=== PATIENT | male | born 1950 | race Caucasian/White ===

== ENCOUNTER 2017-06-14 09:06 | Emergency (ER) | payer OTHER ==
[2017-06-14 09:15] VITALS: TEMP 98.7; BMI 24.4
--- NOTE | 2017-06-14 11:37 | PDOC ---
History of Present Illness - General Chief Complaint: Urinary Problem Stated Complaint: URINARY RETENTION Time Seen by Provider: 06/14/17 11:23 History Source: Patient Exam Limitations: No Limitations - History of Present Illness Initial Comments: CHIEF COMPLAINT: 66 y/o afebrile male with PMH HLD, enlarged prostate c/o urinary retention since yesterday. HISTORY OF PRESENT ILLNESS: Patient states he used to be on medication for his urinary retention but stopped on his own about 1 year ago because he felt it wasn't doing anything. He states yesterday morning he had a normal BM. After that he started having urinary retention and feels like he has to go to the bathroom all the time but only a few drops come out. He also admits he hasn't had a bowel movement since yesterday morning. he denies f/c, n/v/d, CP, SOB, back pain. Vital signs on arrival are within normal limits. REVIEW OF SYSTEMS: GENERAL/CONSTITUTIONAL: No fever/chills. No weakness. No weight change. HEAD, EYES, EARS, NOSE AND THROAT: No change in vision. No ear pain or discharge. No sore throat. CARDIOVASCULAR: No chest pain or shortness of breath. RESPIRATORY: No cough, wheezing, or hemoptysis. GASTROINTESTINAL: No abd pain, nausea, vomiting, diarrhea. GENITOURINARY: +urinary retention. MUSCULOSKELETAL: No joint or muscle swelling or pain. No neck or back pain. SKIN: No rash or easy bruising. NEUROLOGIC: No headache, vertigo, loss of consciousness, or loss of sensation. PHYSICAL EXAM: GENERAL: The patient is awake, alert, and fully oriented, in no acute distress. He is well appearing and ambulatory. HEAD: Normal with no signs of trauma. ABDOMEN: Soft, non-distended, minimal TTP of suprapubic region. Normal BS x 4 BACK: No CTA with fist percussion b/l. EXTREMITIES: Normal range of motion, no edema. NEUROLOGICAL: Normal speech, normal gait. CN II-XII grossly intact. SKIN: Warm, dry, normal turgor, no rashes or lesions noted. Past History - Past Medical History Allergies/Adverse Reactions: Allergies Allergy/AdvReac Type Severity Reaction Status Date / Time No Known Allergies Allergy Verified 06/14/17 09:12 Home Medications: Ambulatory Orders Docusate Sodium [Colace -] 100 mg PO BID #20 capsule 06/14/17 COPD: No Hypercholesterolemia: Yes Other medical history: bph,arithritis - Immunization History Immunization Up to Date: Yes - Suicide/Smoking/Psychosocial Hx Smoking History: Never smoked Have you smoked in the past 12 months: No Information on smoking cessation initiated: No Hx Alcohol Use: No Substance Use Type: None *Physical Exam - Vital Signs Last Vital Signs Temp Pulse Resp BP Pulse Ox 98.7 F 95 H 18 125/78 100 06/14/17 09:13 06/14/17 09:13 06/14/17 09:13 06/14/17 09:13 06/14/17 09:13 Medical Decision Making - Medical Decision Making A/P: 66 y/o male with known prostate enlargement not on meds c/o urinary retention since yesterday. Plan is as follows: 1. UA/culture 2. Insert catheter UA negative Patient states he feels much better now with the catheter in place. Approximately 400cc in the bag. Will d/c to home with ahuja in place and instructions to f/u with his urologist within as soon as possible. Will send with rx for colace for his constipation. Instructed him to return to the ER with any worsening or concerning symptoms. The patient verbalizes understanding of all instructions, has no further questions and is awaiting discharge. *DC/Admit/Observation/Transfer Diagnosis at time of Disposition: Urinary retention, Constipation - Discharge Dispostion Disposition: HOME Condition at time of disposition: Improved - Referrals Referrals: Arnold Castaneda MD [Staff Physician] - Call tomorrow - Patient Instructions Printed Discharge Instructions: DI for Urinary Retention in Men, DI for Constipation Additional Instructions: Discharge Instructions: -A prescription was sent to your pharmacy to help with constipation. -Please call Dr. Castaneda tomorrow to schedule follow up appointment -Return to the ER with any worsening or concerning symptoms - Post Discharge Activity
[2017-06-14 12:54] LABS: URINE APPEARANCE CLEAR; URINE BILIRUBIN NEGATIVE (NEGATIVE); URINE BLOOD 1+ (NEGATIVE); URINE COLOR YELLOW; URINE GLUCOSE (UA) NEGATIVE (NEGATIVE); URINE KETONE TRACE (NEGATIVE); URINE LEUK ESTERASE NEGATIVE (NEGATIVE); URINE NITRITE NEGATIVE (NEGATIVE); URINE PROTEIN NEGATIVE (NEGATIVE); URINE UROBILINOGEN NEGATIVE mg/dL (0.2-1.0)
[2017-06-14 14:16] VITALS: BP 134/78; PULSE 68
== END 2017-06-14 14:39 | disposition home or self-care (01) ==
LOC: JER 09:06
PROC: 0T9B70Z Drainage of Bladder with Drainage Device, Via Natural or Artificial Opening (ICD-10-PCS; principal; 2017-06-14)
DX: N40.1 Benign prostatic hyperplasia with lower urinary tract symptoms (principal); R33.8 Other retention of urine
CPT/HCPCS: 81003; 81015; 87086; 99283-25

== ENCOUNTER 2017-07-18 17:56 | Emergency (ER) | payer OTHER ==
[2017-07-18 18:01] VITALS: BP 142/94; PULSE 92; TEMP 98; BMI 23.3
--- NOTE | 2017-07-18 18:43 | PDOC ---
History of Present Illness - General Chief Complaint: Urinary Problem Stated Complaint: TROUBLE URINATING Time Seen by Provider: 07/18/17 18:37 History Source: Patient, Family Exam Limitations: No Limitations - History of Present Illness Initial Comments: 66 yo M history BPH presents with urinary retention. He states that he recently had a Ahuja catheter placed, it was removed around midnight last night, passed small amount of urine after about 45 minutes, then has not been able to urinate since then. C/o suprapubic pain. Denies fever, N/V/D. Pain is sharp, nonradiating. Past History - Past Medical History Allergies/Adverse Reactions: Allergies Allergy/AdvReac Type Severity Reaction Status Date / Time No Known Allergies Allergy Verified 07/18/17 18:00 Home Medications: Ambulatory Orders Tamsulosin HCl [Flomax] 0.4 mg PO DAILY 07/18/17 COPD: No Hypercholesterolemia: Yes Other medical history: enlarged prostate, arthritis - Immunization History Immunization Up to Date: Yes - Suicide/Smoking/Psychosocial Hx Smoking History: Never smoked Have you smoked in the past 12 months: No Information on smoking cessation initiated: No Hx Alcohol Use: No Drug/Substance Use Hx: No Substance Use Type: None Review of Systems - Review of Systems Able to Perform ROS?: Yes Comments:: GENERAL/CONSTITUTIONAL: No fever or chills. No weakness. HEAD, EYES, EARS, NOSE AND THROAT: No change in vision. No ear pain or discharge. No sore throat. CARDIOVASCULAR: No chest pain or shortness of breath. RESPIRATORY: No cough, wheezing, or hemoptysis. GASTROINTESTINAL: No nausea, vomiting, diarrhea or constipation. GENITOURINARY: No dysuria, frequency. +Decreased urination. MUSCULOSKELETAL: No joint or muscle swelling or pain. No neck or back pain. SKIN: No rash NEUROLOGIC: No headache, vertigo, loss of consciousness, or change in strength/ sensation. ENDOCRINE: No increased thirst. No abnormal weight change. HEMATOLOGIC/LYMPHATIC: No anemia, easy bleeding, or history of blood clots. ALLERGIC/IMMUNOLOGIC: No hives or skin allergy. *Physical Exam - Vital Signs Last Vital Signs Temp Pulse Resp BP Pulse Ox 98 F 92 H 18 142/94 98 07/18/17 17:59 07/18/17 17:59 07/18/17 17:59 07/18/17 17:59 07/18/17 17:59 - Physical Exam Comments: GENERAL: Awake, alert, and fully oriented, in no acute distress (Examined as ahuja catheter was being placed by RN) HEAD: No signs of trauma EYES: PERRLA, EOMI, sclera anicteric, conjunctiva clear ENT: Auricles normal inspection, hearing grossly normal, nares patent, oropharynx clear without exudates. Moist mucosa NECK: Normal ROM, supple, no lymphadenopathy, JVD, or masses LUNGS: Breath sounds equal, clear to auscultation bilaterally. No wheezes, and no crackles HEART: Regular rate and rhythm, normal S1 and S2, no murmurs, rubs or gallops ABDOMEN: Soft, nontender, normoactive bowel sounds. No guarding, no rebound. + Mild bladder distension. No CVAT. EXTREMITIES: Normal range of motion, no edema. No clubbing or cyanosis. No cords, erythema, or tenderness NEUROLOGICAL: Cranial nerves II through XII grossly intact. Normal speech, normal gait SKIN: Warm, Dry, normal turgor, no rashes or lesions noted. : Ahuja draining dark yellow urine. Medical Decision Making - Medical Decision Making 07/18/17 18:43 Initial drainage from ahuja catheter 300mL. Will observe briefly in ED before DC home. 07/18/17 19:[address] Simon at 7pm shift change. Awaiting UA, then DC home. *DC/Admit/Observation/Transfer Diagnosis at time of Disposition: Urinary retention - Discharge Dispostion Condition at time of disposition: Improved Admit: No - Referrals - Patient Instructions Printed Discharge Instructions: How to Care for Your Ahuja Catheter -- Male, DI for Urinary Retention in Men Print Language: BELARUSIAN - Post Discharge Activity
[2017-07-18 18:58] LABS: URINE APPEARANCE CLOUDY; URINE BILIRUBIN NEGATIVE (NEGATIVE); URINE BLOOD 3+ (NEGATIVE); URINE COLOR YELLOW; URINE GLUCOSE (UA) NEGATIVE (NEGATIVE); URINE KETONE NEGATIVE (NEGATIVE); URINE LEUK ESTERASE NEGATIVE (NEGATIVE); URINE NITRITE NEGATIVE (NEGATIVE); URINE UROBILINOGEN NEGATIVE mg/dL (0.2-1.0)
[2017-07-18 19:14] LABS: URINE PROTEIN 1+ (NEGATIVE)
[2017-07-18 19:19] LABS: URINE MUCUS RARE
== END 2017-07-18 19:32 | disposition home or self-care (01) ==
LOC: JER 17:56
DX: R33.9 Retention of urine, unspecified (principal); E78.00 Pure hypercholesterolemia, unspecified
CPT/HCPCS: 81003; 81015; 87086; 99282-25

== ENCOUNTER 2017-09-30 09:56 | Emergency (ER) | payer OTHER ==
[2017-09-30 10:03] VITALS: BMI 25.3
--- NOTE | 2017-09-30 10:54 | PDOC ---
History of Present Illness - General History Source: Patient Exam Limitations: No Limitations - History of Present Illness Initial Comments: 09/30/17 11:13 The patient is a 67 year old female with a significant PMH of BPH (ahuja in place, on Flomax) and hyperlipidemia who presents to the emergency department with urinary leakage beginning approximately this morning. The patient reports he has a ahuja with bag in place and woke up this morning soaked with urine. He reports unsuccessfully attempting to remove his ahuja himself in order to urinate on his own, and noted some blood in the catheter afterwards. He states his ahuja has been in place for approximately 3 months. The patient denies fevers and chills. The patient denies chest pain, shortness of breath, headache and dizziness. Denies nausea, vomit, diarrhea and constipation. Denies dysuria, frequency, and urgency. Allergies: NKA Past surgical history: None reported. Social history: No reported cigarette, alcohol, or drug use. PCP: None reported. <Osmin Joshi - Last Filed: 09/30/17 11:13> - General History Source: Patient Exam Limitations: No Limitations <Stephanie Rodriguez - Last Filed: 09/30/17 12:56> - General Chief Complaint: Urinary Catheter Problem Stated Complaint: URINARY PROBLEM Past History <Osmin Joshi - Last Filed: 09/30/17 11:13> - Past Medical History COPD: No Disorders: Yes (BPH) Hypercholesterolemia: Yes - Immunization History Immunization Up to Date: Yes - Suicide/Smoking/Psychosocial Hx Smoking History: Never smoked Have you smoked in the past 12 months: No Hx Alcohol Use: No Drug/Substance Use Hx: No Substance Use Type: None <Stephanie Rodriguez - Last Filed: 09/30/17 12:56> - Past Medical History Allergies/Adverse Reactions: Allergies Allergy/AdvReac Type Severity Reaction Status Date / Time No Known Allergies Allergy Verified 09/30/17 10:03 Home Medications: Ambulatory Orders Tamsulosin HCl [Flomax] 0.4 mg PO DAILY 07/18/17 Sulfamethoxazole/Trimethoprim [Bactrim Ds -] 1 tab PO BID #14 tablet 09/30/17 Review of Systems - Review of Systems Constitutional: No: Chills, Diaphoresis HEENTM: No: Eye Pain Cardiac (ROS): No: Chest Pain ABD/GI: No: Abdominal Distended : Yes: Other (leaking ahuja cathetar). No: Burning, Dysuria <Stephanie Rodriguez - Last Filed: 09/30/17 12:56> *Physical Exam - Vital Signs Last Vital Signs Temp Pulse Resp BP Pulse Ox 98.1 F 60 18 135/58 99 09/30/17 09:59 09/30/17 09:59 09/30/17 09:59 09/30/17 09:59 09/30/17 09:59 <Osmin Joshi - Last Filed: 09/30/17 11:13> - Vital Signs Last Vital Signs Temp Pulse Resp BP Pulse Ox 98.1 F 60 18 135/58 99 09/30/17 09:59 09/30/17 09:59 09/30/17 09:59 09/30/17 09:59 09/30/17 09:59 - Physical Exam General Appearance: Yes: Appropriately Dressed Respiratory/Chest: positive: Lungs Clear, Normal Breath Sounds Cardiovascular: positive: Regular Rhythm, Regular Rate, S1, S2 Gastrointestinal/Abdominal: positive: Normal Bowel Sounds, Flat, Soft. negative : Tender Male Genitalia: positive: other (ahuja leg bag , blood and cloudy urine in bag.) Extremity: positive: Normal Capillary Refill Integumentary: positive: Normal Color, Dry, Warm Neurologic: positive: Fully Oriented, Alert, Normal Mood/Affect <Stephanie Rodriguez - Last Filed: 09/30/17 12:56> Medical Decision Making - Medical Decision Making 09/30/17 10:53 67 yo male h/o BPH indwelling cathetar for few months, followed by urologist in [place]. no f/c no flank pain. no other complaints. differential dysfunctional cathetar. infection. plan change ahuja, ua urine culture, reassess. <Stephanie Rodriguez - Last Filed: 09/30/17 12:56> *DC/Admit/Observation/Transfer - Attestations Scribe Attestion: 09/30/17 11:13 Documentation prepared by Osmin Joshi, acting as medical office receptionist assistant for Stephanie Rodriguez MD. <Osmin Joshi - Last Filed: 09/30/17 11:13> - Discharge Dispostion Decision to Admit order: No <Stephanie Rodriguez - Last Filed: 09/30/17 12:56> Diagnosis at time of Disposition: UTI (urinary tract infection), Ahuja catheter problem - Discharge Dispostion Disposition: HOME Condition at time of disposition: Improved - Prescriptions Prescriptions: Sulfamethoxazole/Trimethoprim [Bactrim Ds -] 1 tab PO BID #14 tablet - Patient Instructions Printed Discharge Instructions: How to Care for Your Ahuja Catheter -- Male, Urinary Tract Infection Additional Instructions: you should take bactrim twice daily x 7 days. follow up with your urologist this week. return for fever, failure to drain cathetar or any problems. Print Language: LATVIAN
[2017-09-30 12:12] LABS: URINE APPEARANCE CLOUDY; URINE BILIRUBIN NEGATIVE (<2.0 mg/dL); URINE COLOR RED; URINE GLUCOSE (UA) NEGATIVE (NEGATIVE); URINE KETONE NEGATIVE (NEGATIVE); URINE NITRITE POSITIVE (NEGATIVE); URINE UROBILINOGEN NEGATIVE mg/dL (0.2-1.0)
[2017-09-30 12:14] LABS: URINE LEUK ESTERASE 2+ (NEGATIVE); URINE PROTEIN 2+ (NEGATIVE)
[2017-09-30] MEDS ORDERED: SULFAMETHOXAZOLE/TRIMETHOPRIM 800MG/160MG D.S. TABLET PO ONE (12:40)
[2017-09-30] MEDS ORDERED: SULFAMETHOXAZOLE/TRIMETHOPRIM 800MG/160MG D.S. TABLET ONE (12:50)
[2017-09-30 13:05] VITALS: BP 135/74; PULSE 77; TEMP 98.2
== END 2017-09-30 13:05 | disposition home or self-care (01) ==
LOC: JER 09:56
DX: T83.038A Leakage of other urinary catheter, initial encounter (principal); N39.0 Urinary tract infection, site not specified; N40.0 Benign prostatic hyperplasia without lower urinary tract symptoms
CPT/HCPCS: 81003; 81015; 87086; 99283-25

== ENCOUNTER 2021-03-20 23:38 | Emergency (ER) | payer OTHER ==
[2021-03-20 23:47] VITALS: BP 141/89; PULSE 69; TEMP 98; BMI 24.2
[2021-03-21] MEDS ORDERED: MAGNESIUM CITRATE 300 ML BOTTLE PO ONE (00:48)
[2021-03-21] MEDS ORDERED: MAGNESIUM CITRATE 300 ML BOTTLE ONE (01:02)
== END 2021-03-21 01:45 | disposition home or self-care (01) ==
LOC: JER 23:38
DX: K59.00 Constipation, unspecified (principal); R33.9 Retention of urine, unspecified
CPT/HCPCS: 99283-25

== ENCOUNTER 2021-03-27 07:38 | Emergency (ER) | payer OTHER ==
[2021-03-27 07:43] VITALS: TEMP 97; BMI 24.2
[2021-03-27] MEDS ORDERED: MAGNESIUM CITRATE 300 ML BOTTLE PO ONE (09:52)
[2021-03-27] MEDS ORDERED: MAGNESIUM CITRATE 300 ML BOTTLE ONE (10:06)
[2021-03-27 10:18] LABS: EPI CELLS 1 /uL (0-25.1); HYALINE CASTS 1 /uL (0-3.1); PH,URINE 5.5 (5.0-8.0); URINE APPEARANCE CLEAR; URINE BACTERIA 0 /uL (0-1359); URINE BILIRUBIN NEGATIVE (NEGATIVE); URINE COLOR YELLOW; URINE GLUCOSE (UA) NEGATIVE (NEGATIVE); URINE KETONE NEGATIVE (NEGATIVE); URINE LEUK ESTERASE NEGATIVE (NEGATIVE); URINE NITRITE NEGATIVE (NEGATIVE); URINE PROTEIN NEGATIVE (NEGATIVE); URINE RBC 588 /uL (0-23.9); URINE UROBILINOGEN 0.2 mg/dL (0.2-1.0); URINE WBC 17 /uL (0-25.8)
[2021-03-27 12:04] VITALS: BP 131/78; PULSE 65
== END 2021-03-27 12:04 | disposition home or self-care (01) ==
LOC: JER 07:38
DX: R33.9 Retention of urine, unspecified (principal); K59.00 Constipation, unspecified; Z96.0 Presence of urogenital implants
CPT/HCPCS: 81003; 87086; 99283-25

== ENCOUNTER 2023-01-17 16:49 | Emergency (ER) | payer OTHER ==
[2023-01-17 16:59] VITALS: BP 123/86; PULSE 86; RESP 18; TEMP 98.6; BMI 26.4
[2023-01-17 20:04] LABS: EPI CELLS 0 /uL (0-25.1); HYALINE CASTS 12 /uL (0-3.1); PH,URINE 6.5 (5.0-8.0); URINE APPEARANCE CLEAR; URINE BACTERIA >9,000 /uL (0-1359); URINE BILIRUBIN NEGATIVE (NEGATIVE); URINE COLOR YELLOW; URINE GLUCOSE (UA) NEGATIVE (NEGATIVE); URINE KETONE TRACE (NEGATIVE); URINE LEUK ESTERASE 1+ (NEGATIVE); URINE NITRITE POSITIVE (NEGATIVE); URINE PROTEIN 1+ (NEGATIVE); URINE RBC 59 /uL (0-23.9); URINE WBC 172 /uL (0-25.8)
== END 2023-01-17 21:18 | disposition home or self-care (01) ==
LOC: JER 16:49
DX: N50.811 Right testicular pain (principal); R10.30 Lower abdominal pain, unspecified; N45.1 Epididymitis; N39.0 Urinary tract infection, site not specified; N49.2 Inflammatory disorders of scrotum
CPT/HCPCS: 36415; 76870-TC; 81003; 87086; 87186; 87491; 87591; 87661; 99284-25